=== PATIENT | male | born 1945 | race Caucasian/White ===

== ENCOUNTER 2021-12-01 08:28 | Outpatient (CLI) | payer OTHER ==
[2021-12-01] MEDS ORDERED: CYSTOGRAFIN 300 ML INFUS..BTL UR ONE (14:57)
== END 2021-12-01 21:06 | disposition home or self-care (01) ==
LOC: SNM 08:28
PROVIDERS: ATTEND Urology
DX: C61 Malignant neoplasm of prostate (principal)
CPT/HCPCS: 51600; 74430; Q9958

== ENCOUNTER 2022-06-25 19:50 | Emergency (ER) | payer OTHER ==
[~2022-06-25] VITALS: Ht 167.6 cm; Wt 64.4 kg
--- NOTE | 2022-06-25 19:54 | NUR ---
Patient to ER bed 08 to gown for evaluation. Side rails up. Report given to Germain GALLEGOS .
[2022-06-25 19:55] VITALS: BP_SYST 130
--- NOTE | 2022-06-25 20:06 | NUR ---
pt BIB BLS from home c/o possible syncopal episode after drinking too much wine. Pt alert, able to follow commands. +abrasion to posterior head, +controlled bleeding. Denies use of blood thinners. +skin tear to LFA. +pupils PEARRL.
--- NOTE | 2022-06-25 20:06 | NUR ---
Dr. Lynn at bedside
--- NOTE | 2022-06-25 20:20 | NUR ---
pt wound cleaned, no acute bleeding noted.
[2022-06-25 21:04] LABS: BASOPHILS % (AUTO) 0.7 % (0.0-2.0); EOSINOPHILS # (AUTO) 0.2 K/uL (0.0-0.4); EOSINOPHILS % (AUTO) 2.8 % (0.0-4.0); HEMATOCRIT 39.4 % (36-54); HEMOGLOBIN 13.2 g/dL (14.0-18.0); LYMPHOCYTES # (AUTO) 2.3 K/uL (1.0-5.5); LYMPHOCYTES % (AUTO) 34.4 % (20.5-51.5); MEAN CORPUSCULAR HEMOGLOBIN 33 pg (27-31); MEAN CORPUSCULAR HGB CONC 34 % (32-36); MEAN CORPUSCULAR VOLUME 98 fL (79.0-98.0); MONOCYTES # (AUTO) 0.5 K/uL (0.0-1.0); MONOCYTES % (AUTO) 7.2 % (1.7-9.3); NEUTROPHILS # (AUTO) 3.6 K/uL (1.8-7.7); NEUTROPHILS % (AUTO) 54.9 % (40.0-70.0); PLATELET COUNT (AUTO) 143 K/uL (130-430); RED BLOOD CELL COUNT(AUTO) 4.04 MIL/uL (4.2-6.2); RED CELL DISTRIBUTION WIDTH 13.7 % (9.0-15.0); WHITE BLOOD COUNT (AUTO) 6.5 K/uL (4.8-10.8)
--- NOTE | 2022-06-25 21:35 | NUR ---
Dr. Lynn at bedside updating patient/family on POC, need for transfer.
[2022-06-25 21:39] LABS: ANION GAP 13 (5-15); CHLORIDE 102 mmol/L (98-107); CREATININE 0.82 mg/dL (0.55-1.30); GLUCOSE 111 mg/dL (70-99); UREA NITROGEN, BLOOD 31 mg/dL (8-21)
--- NOTE | 2022-06-25 21:40 | NUR ---
transfer consent signed by .
[2022-06-25 21:43] LABS: ALANINE AMINOTRANSFERASE 22 U/L (12-78); ALBUMIN 4.1 g/dL (3.4-4.8); ALCOHOL, BLOOD 194 mg/dL (<10); AMYLASE 46 U/L (0-100); ASPARTATE AMINOTRANSFERASE 29 U/L (10-37); LIPASE 72 U/L (73-393); TOTAL BILIRUBIN 0.3 mg/dL (0.0-1.0)
[2022-06-25 22:01] LABS: PROTHROMBIN TIME 9.9 SECS (9.5-12.5)
--- NOTE | 2022-06-25 22:13 | NUR ---
called Jean-Paul Martell @[phone] [id number] to give report. S/w Gianna GALLEGOS- sbar given with ETA. All questions answered.
[2022-06-25 22:19] LABS: ACETONE, SERUM NEGATIVE (NEGATIVE)
--- NOTE | 2022-06-25 23:01 | NUR ---
Patient to be transferred to [facility]. Is being transferred due to higher level of care. Receiving facility has accepting physician and available space. ER physician has signed transfer form. Patient or responsible libertarian has agreed to transfer and signed form. Patient belongings inventoried and will be sent with patient. Copy of nursing notes, lab reports, EKG, Physicians Orders and X-rays to be sent with patient. Report called to CONNER GALLEGOS at receiving facility. Receiving physician is DR. HANNA. [facility] has been called for transfer. REPORT GIVEN TO LIANA MONREAL WITH [facility].
[2022-06-25 23:03] VITALS: BP_SYST 120
--- NOTE | 2022-06-26 15:00 | NUR ---
RADIOLOGIST DR. SERNA WHO STATES PT'S HEADT CT SHOULD ALSO INCLUDE "Fractures of right occipital bone and left occipital condyle, not previously described.". UPDATED REPORTS TO BE FAXED TO [facility] FOR UPDATE BY MT. NOLBERTO
== END 2022-06-25 23:03 | disposition short-term general hospital (02) ==
LOC: SED 19:50
DX: S06.5X0A Traumatic subdural hemorrhage without loss of consciousness, initial encounter (principal); Z79.899 Other long term (current) drug therapy; Z20.822 Contact with and (suspected) exposure to COVID-19; X58.XXXA Exposure to other specified factors, initial encounter; Y93.89 Activity, other specified; Y92.89 Other specified places as the place of occurrence of the external cause; Y99.8 Other external cause status
CPT/HCPCS: 99285; 70450; 87426; 80053; 82009; 82140; 82150; 83690; 85025; 85610; 85730; 36415; 93005; 76376; 83605; G0482